=== PATIENT | male | born 1965 | race Caucasian/White ===

== ENCOUNTER 2020-11-07 18:38 | Inpatient (IN) | payer OTHER ==
[2020-11-07] MEDS ORDERED: Nitroglycerin 0.4 MG TAB (25 Tab Bottle) SL PRN (19:50)
[2020-11-07] MEDS ORDERED: Lidocaine 2% Viscous Solution 20 ML, Aluminum & Magnesium Hydroxide 30 ML, Donnatal Eli... SSW SCH (20:00)
[2020-11-07] MEDS ORDERED: diphenhydrAMINE 50 MG CAP PO PRN (20:25)
[2020-11-07 20:32] LABS: PTT 27.1 sec (22.0-33.0); Prothrombin Time 11.3 sec (9.5-12.1)
[2020-11-07] MEDS: Pantoprazole 40 MG VIAL IVP SCH (20:58)
[2020-11-07] MEDS ORDERED: Atorvastatin Calcium 20 MG TAB PO SCH (21:00)
[2020-11-07] MEDS ORDERED: Milk Of Magnesia 30 ML UDCUP PO SCH (21:15)
[2020-11-07] MEDS ORDERED: Morphine 2 MG/ML VIAL SLOW IVP SCH (21:15)
[2020-11-07] MEDS ORDERED: Morphine 2 MG/ML VIAL SLOW IVP PRN (21:15)
[2020-11-07] MEDS: Morphine 4 MG/ML VIAL SLOW IVP PRN (21:44)
[2020-11-07] MEDS: Nitroglycerin 2% Ointment 1 INCH/1 GM Packet TOP SCH (23:31)
[2020-11-07 23:36] LABS: CKMB 25.6 ng/mL (0-6.6); Troponin I 3.145 ng/mL (< 0.028)
[2020-11-07] MEDS ORDERED: Acetaminophen 325 MG TAB PO PRN (23:45)
[2020-11-08] MEDS ORDERED: Enoxaparin Sodium 100 MG/ML SYRINGE SC SCH (05:00)
[2020-11-08 05:12] LABS: #Monocytes 0.8 10x3/uL (0.0-1.1); #Neutrophils 5.7 10x3/uL (1.5-8.4); %Basophils 0.4 % (0.0-2.0); %Eosinophils 0.3 % (0.0-6.0); %Lymphocytes 25.7 % (18.0-47.0); %Monocytes 9.2 % (0.0-10.0); %Neutrophils 63.8 % (40.0-75.0); Hemoglobin 12.4 g/dL (13.5-17.5); Mean Corpuscular HGB CONC 33.1 g/dL (32.0-36.0); Mean Corpuscular Hemoglobin 29.2 pg (27.0-33.0); Mean Corpuscular Volume 88.2 fl (81.2-95.1); Mean Platelet Volume 10.3 fl (7.4-10.4); Platelet Count 320 10x3/uL (150-450); RBC Distribution Width 13.4 % (11.5-14.5); Red Blood Cell (RBC) Count 4.25 10x6/uL (4.32-5.72)
[2020-11-08 05:28] LABS: Anion Gap 12 mmol/L (10-20); BUN (Urea Nitrogen) 15 mg/dL (8.4-25.7); Calc. Creatinine Clearance 128 mL/min (70-130); Calcium 8.7 mg/dL (7.8-10.44); Carbon Dioxide 25 mmol/L (22-29); Cardiac Risk 4.9 (Less than 4.5); Chloride 106 mmol/L (98-107); Cholesterol 204 mg/dl (< 200 Desired); Glucose 148 mg/dL (70-105); HDL Cholesterol 42 mg/dL (>60 Neg Risk); LDL Cholesterol, Calculated 121 mg/dL; Magnesium 2.1 mg/dL (1.6-2.6); Potassium 4.3 mmol/L (3.5-5.1); Sodium 139 mmol/L (136-145); Triglycerides 205 mg/dL (Less than 150)
[2020-11-08 06:07] LABS: Troponin I 4.323 ng/mL (< 0.028)
[2020-11-08] MEDS: Nitroglycerin 2% Ointment 1 INCH/1 GM Packet TOP SCH ×2 (06:20→14:29)
[2020-11-08] MEDS: Escitalopram Oxalate 10 mg Tablet PO SCH (07:56)
[2020-11-08] MEDS: Pantoprazole 40 MG VIAL IVP SCH (07:56)
[2020-11-08] MEDS: Morphine 4 MG/ML VIAL SLOW IVP PRN (07:56)
[2020-11-08] MEDS ORDERED: Verapamil 5 MG/2 ML VIAL ONE (08:00)
[2020-11-08] MEDS ORDERED: Heparin 10,000 UNITS/ 10 ML VIAL ONE (08:00)
[2020-11-08] MEDS ORDERED: Nitroglycerin 50 MG/250 ML BOT 250 ML ONE (08:00)
[2020-11-08] MEDS ORDERED: Bivalirudin 250 MG VIAL ONE (08:01)
[2020-11-08] MEDS ORDERED: Adenosine 6 MG/2 ML VIAL ONE (08:01)
[2020-11-08] MEDS ORDERED: Lidocaine 1% PF 5 ML VIAL ONE (08:01)
[2020-11-08] MEDS ORDERED: Fentanyl 100 MCG/2 ML VIAL ONE (08:17)
[2020-11-08] MEDS ORDERED: Midazolam HCl 2 mg/2 ml Vial ONE (08:18)
[2020-11-08] MEDS ORDERED: Atropine Sulfate 0.4 mg/1 ml Vial ONE (08:34)
[2020-11-08] MEDS ORDERED: Aspirin 325 mg Enteric Coated Tablet PO SCH (09:00)
[2020-11-08] MEDS ORDERED: Aspirin Chewable 81 MG TAB PO SCH (09:00)
[2020-11-08] MEDS ORDERED: Nitroglycerin 0.4 MG TAB (25 Tab Bottle) SL PRN (09:20)
[2020-11-08] MEDS ORDERED: Acetaminophen/Codeine 30-300mg Tablet PO PRN (09:20)
[2020-11-08] MEDS ORDERED: Ketorolac Tromethamine 30 MG/ML VIAL IVP SCH (09:30)
[2020-11-08] MEDS ORDERED: Sodium Chloride 0.9% 1,000 ML IV SCH (09:30)
[2020-11-08] MEDS ORDERED: Ketorolac Tromethamine 30 MG/ML VIAL IVP PRN (18:36)
[2020-11-08] MEDS ORDERED: Mag-Al 1200 mg/1200 mg/30 ML UDCUP PO PRN (18:36)
[2020-11-08] MEDS ORDERED: Atorvastatin Calcium 40 MG TAB PO SCH (21:00)
[2020-11-08] MEDS ORDERED: Prevnar 13-Val Conj/PF 0.5 ML SYRINGE IM ONE (21:00)
[2020-11-08] MEDS ORDERED: Mag-Al Plus 1200 MG/1200 MG/120 MG/30 ML UDCUP PO PRN (21:45)
[2020-11-09] MEDS: Escitalopram Oxalate 10 mg Tablet PO SCH (08:14)
[2020-11-09] MEDS ORDERED: Calcium Carbonate 500 MG ChewTAB PO PRN (09:28)
[2020-11-09 12:04] VITALS: BP 109/64; TEMP 97.4
== END 2020-11-09 12:30 | disposition home or self-care (01) | DRG 282 ==
LOC: CSHTELE 18:38 → OBSVTOIN 11-08 09:20
PROVIDERS: ADMIT Student in an Organized Health Care Education/Training Program; ATTEND Internal Medicine
PROC: 4A023N7 Measurement of Cardiac Sampling and Pressure, Left Heart, Percutaneous Approach (ICD-10-PCS; principal; 2020-11-08)
PROC: B2111ZZ Fluoroscopy of Multiple Coronary Arteries using Low Osmolar Contrast (ICD-10-PCS; 2020-11-08)
PROC: B2151ZZ Fluoroscopy of Left Heart using Low Osmolar Contrast (ICD-10-PCS; 2020-11-08)
DX: I25.10 Atherosclerotic heart disease of native coronary artery without angina pectoris (principal); I21.4 Non-ST elevation (NSTEMI) myocardial infarction; K21.00 Gastro-esophageal reflux disease with esophagitis, without bleeding; M51.26 Other intervertebral disc displacement, lumbar region; Z86.718 Personal history of other venous thrombosis and embolism; E78.2 Mixed hyperlipidemia; K22.719 Barrett's esophagus with dysplasia, unspecified; M54.9 Dorsalgia, unspecified; G89.29 Other chronic pain
CPT/HCPCS: 36415; 80048; 80061; 82550; 82553; 83735; 84484; 85025; 85610; 85730; 93005; 93010; 93306; 93458; 93880; 96372; 96374; 96375; 96376; 99152; C9113; G0378; J0153; J0461; J0583; J1644; J1650; J1885; J2250; J2270; J3010